=== PATIENT | male | born 1955 | race African-American/Black ===

== ENCOUNTER 2023-08-08 09:28 | Emergency (ER) | payer MEDICARE ==
[~2023-08-08 09:28] MED LIST: Iopamidol 370 76% 100 ML VIAL ONE
[2023-08-08] MEDS ORDERED: Ipratropium/Albuterol 3 ML NEB ONE ×2 (09:44→10:24)
[2023-08-08] MEDS ORDERED: methylPREDNISolone Sod Succ/PF 125 MG/2 ML VIAL ONE (09:49)
[2023-08-08] MEDS ORDERED: Magnesium 2 GM/50 ML BAG (IN WATER) ONE (10:24)
[2023-08-08 11:07] LABS: Base Excess-Venous 0.6 mmol/L (-2.0 to 3.0); Bicarbonate (HCO3v) 26.4 mmol/L (22.0-28.0); CO2 Tension (PvCO2) 46.1 mmHg (42.0-51.0); Calcium, Ionized 1.15 mmol/L (1.15-1.33); Chloride 98 mmol/L (98-107); Hemoglobin - Calc 11.6 g/dL (14.0-18.0); Potassium 3.9 mmol/L (3.5-5.1); Sodium 134 mmol/L (138-145); T. Carbon Dioxide 27.8 mmol/L (22.0-28.0); vO2 Saturation-calc 96.7 % (60.0-85.0)
[2023-08-08 11:12] LABS: Hematocrit 29.7 % (42.0-52.0); Hemoglobin 9.1 g/dL (14.0-18.0); Mean Corpuscular HGB CONC 30.7 g/dL (32.0-36.0); Mean Corpuscular Hemoglobin 27.9 pg (27.0-31.0); Mean Corpuscular Volume 90.7 fl (78.0-98.0); Mean Platelet Volume 6.2 fL (7.4-10.4); Platelet Count 486 10x3/uL (130-400); RBC Distribution Width 13.8 % (11.5-14.5); Red Blood Cell (RBC) Count 3.27 mill/uL (4.70-6.10); White Blood Cell (WBC) Count 12.2 10x3/uL (4.8-10.8)
[2023-08-08] MEDS ORDERED: Sodium Chloride 0.9% 100 ML ONE (11:16)
[2023-08-08] MEDS ORDERED: Piperacillin/Tazobactam 4.5 GM VIAL ONE (11:16)
[2023-08-08 11:17] LABS: ALT (SGPT) 14 U/L (8-55); AST (SGOT) 16 U/L (5-34); Albumin 2.8 g/dL (3.4-4.8); Alkaline Phosphatase 94 U/L (40-110); Anion Gap 16 mmol/L (10-20); BUN (Urea Nitrogen) 34 mg/dL (8.4-25.7); Band 13 % (5-11); Bilirubin, Total 0.9 mg/dL (0.2-1.2); Calc. Creatinine Clearance 0 mL/min (70-130); Carbon Dioxide 24 mmol/L (23-31); Chloride 97 mmol/L (98-107); Estimated GFR 98; Globulin 2.9 g/dL (2.4-3.5); Glucose 303 mg/dL (80-115); Hypochromia SLIGHT = 6-15 cells (100X) (0-5/hpf); Lymphocytes 4 % (21-51); MDiff Complete? YES; Magnesium 2.2 mg/dL (1.6-2.6); Metamyelocyte 1 % (0-0); Monocytes 9 % (0-10); Neutrophil 73 % (42-75); Platelet Adequacy Comment Appears Increased; Protein, Total 5.7 g/dL (5.8-8.1); Sodium 133 mmol/L (136-145)
[2023-08-08] MEDS ORDERED: Vancomycin 1 GM VIAL ONE (11:24)
[2023-08-08] MEDS ORDERED: Sodium Chloride 0.9% 250 ML 250 ML ONE (11:24)
[2023-08-08 11:25] LABS: Troponin I 0.014 ng/mL (< 0.028)
[2023-08-08 12:00] LABS: SARS-CoV-2 NAA Rapid Test DETECTED (NotDetected)
[2023-08-08 14:26] LABS: Troponin I 0.022 ng/mL (< 0.028)
== END 2023-08-08 14:24 | disposition short-term general hospital (02) ==
LOC: MADERS 09:28
DX: U07.1 COVID-19 (principal); J44.1 Chronic obstructive pulmonary disease with (acute) exacerbation; J69.0 Pneumonitis due to inhalation of food and vomit; C34.90 Malignant neoplasm of unspecified part of unspecified bronchus or lung; D64.9 Anemia, unspecified; D75.839 Thrombocytosis, unspecified; I11.0 Hypertensive heart disease with heart failure; I50.9 Heart failure, unspecified; E78.00 Pure hypercholesterolemia, unspecified; E11.9 Type 2 diabetes mellitus without complications; J44.9 Chronic obstructive pulmonary disease, unspecified; F17.210 Nicotine dependence, cigarettes, uncomplicated; Z79.899 Other long term (current) drug therapy
CPT/HCPCS: 0241U; 71045; 71275; 80053; 82330; 82435; 82803; 83605; 83735; 83880; 84132; 84295; 84484 ×2; 85014; 85025; 87040; 87081; 87430; 87804 ×2; 93005; 96365; 96367; 96375; J2543; J2930; J3370; J3475; J3490; J7050; J7620; Q9967

== ENCOUNTER 2023-12-19 08:55 | Emergency (ER) | payer MEDICARE, MEDICAID ==
[2023-12-19 09:33] LABS: Hematocrit 36.4 % (42.0-52.0); Hemoglobin 10.8 g/dL (14.0-18.0); Mean Corpuscular HGB CONC 29.7 g/dL (32.0-36.0); Mean Corpuscular Hemoglobin 27.1 pg (27.0-31.0); Mean Platelet Volume 5.9 fL (7.4-10.4); Platelet Count 232 10x3/uL (130-400); RBC Distribution Width 12.8 % (11.5-14.5); White Blood Cell (WBC) Count 7.7 10x3/uL (4.8-10.8)
[2023-12-19 09:34] LABS: Eosinophils 1 % (0-10); Hypochromia SLIGHT = 6-15 cells (100X) (0-5/hpf); Lymphocytes 5 % (21-51); MDiff Complete? YES; Manual Diff?? YES; Monocytes 5 % (0-10); Neutrophil 84 % (42-75); Reactive Lymphocytes 5 % (0-10)
[2023-12-19 09:35] LABS: Platelet Adequacy Comment Appears Adequate
[2023-12-19 09:36] LABS: ALT (SGPT) 17 U/L (8-55); AST (SGOT) 16 U/L (5-34); Albumin 3.5 g/dL (3.4-4.8); Alkaline Phosphatase 88 U/L (40-110); Anion Gap 17 mmol/L (10-20); BUN (Urea Nitrogen) 11 mg/dL (8.4-25.7); Bilirubin, Total 0.6 mg/dL (0.2-1.2); Calc. Creatinine Clearance 0 mL/min (70-130); Calcium 9.1 mg/dL (7.8-10.44); Carbon Dioxide 24 mmol/L (23-31); Chloride 99 mmol/L (98-107); Estimated GFR 99; Globulin 3.6 g/dL (2.4-3.5); Glucose 268 mg/dL (80-115); Magnesium 1.6 mg/dL (1.6-2.6); Protein, Total 7.1 g/dL (5.8-8.1); Sodium 136 mmol/L (136-145)
[2023-12-19 09:37] LABS: Troponin I 0.036 ng/mL (< 0.028)
[2023-12-19] MEDS ORDERED: Enoxaparin 60 MG (0.6 mL) SYRINGE ONE (09:53)
== END 2023-12-19 10:26 | disposition short-term general hospital (02) ==
LOC: MADERS 08:55
DX: R07.9 Chest pain, unspecified (principal); R94.31 Abnormal electrocardiogram [ECG] [EKG]; E78.00 Pure hypercholesterolemia, unspecified; I11.0 Hypertensive heart disease with heart failure; I50.9 Heart failure, unspecified; E11.9 Type 2 diabetes mellitus without complications; Z79.899 Other long term (current) drug therapy
CPT/HCPCS: 71045; 80053; 83735; 83880; 84484; 85025; 93005; 96372; J1650